=== PATIENT | male | born 1995 | race Caucasian/White ===

== ENCOUNTER 2017-08-21 21:28 | Emergency (ER) | payer OTHER ==
[~2017-08-21] VITALS: Ht 182.9 cm; Wt 110.6 kg
[2017-08-21] MEDS ORDERED: BACITRACIN ZINC OINT 500U/GM, 0.9 GM ONE (22:38)
[2017-08-21 22:49] VITALS: BP 139/83
== END 2017-08-21 22:52 | disposition home or self-care (01) ==
LOC: ED 22:50
DX: S01.81XA Laceration without foreign body of other part of head, initial encounter (principal); S01.111A Laceration without foreign body of right eyelid and periocular area, initial encounter; I10 Essential (primary) hypertension; W01.0XXA Fall on same level from slipping, tripping and stumbling without subsequent striking against object, initial encounter; Y93.41 Activity, dancing; Y92.89 Other specified places as the place of occurrence of the external cause; Y99.8 Other external cause status
CPT/HCPCS: 12011; 99283

== ENCOUNTER 2018-09-10 03:12 | Emergency (ER) | payer OTHER ==
[~2018-09-10] VITALS: Ht 185.4 cm; Wt 117.8 kg
--- NOTE | 2018-09-10 04:36 | NUR ---
PT AWAKENS MOMENTARILLY TO PHYSICAL STIMULI HOWEVER PROMPTLY RETURNS TO SLEEP. NAD. VSS.
[2018-09-10 06:33] VITALS: BP 128/74
--- NOTE | 2018-09-10 06:33 | NUR ---
PT ENCOURAGED TO AWAKEN. PT NOW VERBAL AND ABLE TO ASNWER AO QUESTIONS. PT STATES HE FEELS READY TO LEAVE. PT ABLE TO AMBULATE TO RESTROOM INDEPENDENTLY.
== END 2018-09-10 06:35 | disposition home or self-care (01) ==
LOC: ED 06:26
DX: F10.120 Alcohol abuse with intoxication, uncomplicated (principal); I10 Essential (primary) hypertension
CPT/HCPCS: 82962; 99283